=== PATIENT | female | born 1965 | race American Indian/Alaskan Native ===

== ENCOUNTER 2017-03-31 09:02 | Outpatient (CLI) | payer BC ==
--- NOTE | 2017-04-03 10:19 | Mammography Report ---
BILATERAL DIGITAL SCREENING MAMMOGRAM with CAD: 03/31/17 09:02:00 CLINICAL: Routine screening. COMPARISON:None. FINDINGS: Breasts are heterogeneously dense, which may obscure small masses. A right asymmetry on the MLO view requires additional imaging.No architectural distortion or suspicious calcifications.The left breast is negative. IMPRESSION: Right asymmetry requiring further workup. BI-RADS CATEGORY: 0 -- Additional Imaging Evaluation Required RECOMMENDATION: Recall for a right MLO spot compression view and right breast ultrasound is needed. ACR BI-RADS MAMMOGRAPHIC CODES: 0 = Needs additional imaging evaluation; 1 = Negative; 2 = Benign; 3 = Probably benign; 4 = Suspicious; 5 = Malignant; 6 = Known biopsy-proven malignancy COMMENT: 1. Dense breast tissue, i.e., adenosis, fibrocystic changes, etc., may obscure an underlying neoplasm. 2. Approximately 10% of cancers are not detected with mammography. 3. A negative mammography report should not delay biopsy if a clinically suspicious mass is present. COMMENT: Patient follow-up letters are generated via our [employer] application.
== END 2017-03-31 09:03 | disposition home or self-care (01) ==
LOC: SPVWC 09:02 → MAMMO 09:02 → SPVWC 09:03
PROVIDERS: ATTEND General Practice
DX: Z12.31 Encounter for screening mammogram for malignant neoplasm of breast (principal)
CPT/HCPCS: 77067; G0202

== ENCOUNTER 2017-08-25 10:55 | Emergency (ER) | payer BC ==
[2017-08-25 12:24] LABS: Basophils % (Auto) 1.3 % (0.0-1.8); Eosinophils # (Auto) 0.1 K/mm3 (0.0-0.4); Eosinophils % (Auto) 3.9 % (0.0-4.3); Hematocrit 38.1 % (30.3-42.9); Lymphocytes # (Auto) 1.3 K/mm3 (1.2-5.4); Lymphocytes % (Auto) 39.7 % (13.4-35.0); Mean Corpuscular HGB Conc 34 % (30-34); Mean Corpuscular Hemoglobin 33 pg (28-32); Mean Corpuscular Volume 96 fl (79-97); Monocytes # (Auto) 0.4 K/mm3 (0.0-0.8); Monocytes % (Auto) 11.8 % (0.0-7.3); Platelet Count 328 K/mm3 (140-440); Red Blood Count 3.99 M/mm3 (3.65-5.03)
[2017-08-25 12:34] LABS: INR 0.89 (0.87-1.13)
[2017-08-25 12:35] LABS: Partial Thromboplastin Time 27.4 Sec. (24.2-36.6)
[2017-08-25 12:44] LABS: Alanine Aminotransferase 24 units/L (7-56); Albumin 3.8 g/dL (3.9-5); BUN/Creatinine Ratio 5; Blood Urea Nitrogen 5 mg/dL (7-17); Calcium 8.9 mg/dL (8.4-10.2); Hemolysis Index 8
[2017-08-25] MEDS ORDERED: LOVENOX SUB-Q ONE (12:49)
--- NOTE | 2017-08-25 14:25 | Emergency Department Report ---
HPI - General Chief Complaint: Extremity Problem,Nontraumatic Time Seen by Provider: 08/25/17 11:33 - HPI HPI: 51-year-old -[place] female presents with right leg pain, patient had right knee surgery in May. She saw her for orthopedic doctor yesterday in the DVT study was ordered of her right lower extremity. DVT study was positive for DVT in her right leg she was sent to ED for further treatment. She denies any chest pain, shortness of breath, nausea, vomiting. ED Past Medical Hx - Past Medical History Hx Hypertension: Yes Hx CVA: No Hx Heart Attack/AMI: No Additional medical history: Neuropathy, fibromyalgia, bi polar/schizophrenia. - Surgical History Past Surgical History?: Yes Additional Surgical History: Right knee "scope" - Social History Smoking Status: Never Smoker Substance Use Type: None - Medications Home Medications: Home Medications Medication Instructions Recorded Confirmed Last Taken Type Apixaban [Eliquis] 5 mg PO BID #60 tablet 08/25/17 Unknown Rx Apixaban [Eliquis] 10 mg PO BID #14 tablet 08/25/17 Unknown Rx ED Review of Systems ROS: Stated complaint: RT LEG BLOOD CLOT Other details as noted in HPI Comment: All other systems reviewed and negative Constitutional: no symptoms reported Cardiovascular: denies: chest pain, palpitations, dyspnea on exertion, orthopnea Musculoskeletal: other (right leg pain) Skin: denies: rash, lesions Physical Exam - Physical Exam Vital Signs: Vital Signs 08/25/17 11:19 Temperature 98.5 F Pulse Rate 74 Respiratory 16 Rate Blood Pressure 140/83 O2 Sat by Pulse 97 Oximetry Physical Exam: - Physical Exam Physical Exam: - General Limitations: No Limitations General appearance: alert, in no apparent distress, obese - Head Head exam: Present: atraumatic, normocephalic - Eye Eye exam: Present: normal appearance - ENT ENT exam: Present: mucous membranes moist - Neck Neck exam: Present: normal inspection - Respiratory Respiratory exam: Present: normal lung sounds bilaterally. Absent: respiratory distress - Cardiovascular Cardiovascular Exam: Present: normal rhythm, tachycardia. Absent: systolic murmur, diastolic murmur, rubs, gallop - GI/Abdominal GI/Abdominal exam: Present: soft, normal bowel sounds - Extremities Exam Extremities exam: Present: Right lower extremity swelling. Right calf tenderness. - Back Exam Back exam: Present: normal inspection - Neurological Exam Neurological exam: Present: alert, oriented X3 - Psychiatric Psychiatric exam: normal affect and mood - Skin Skin exam: Present: warm, dry, intact, normal color. Absent: rash ED Course Vital Signs 08/25/17 11:19 Temperature 98.5 F Pulse Rate 74 Respiratory 16 Rate Blood Pressure 140/83 O2 Sat by Pulse 97 Oximetry - Reevaluation(s) Reevaluation #1: 08/25/17 20:12 Plan was explained to patient in details. She prefers going home on eliquis. eliquis was given as an rx after 100mg of lovenox im in er. she advised to return to er if symptoms worsens. she voiced understanding. ED Medical Decision Making - Lab Data Result diagrams: 08/25/17 11:58 08/25/17 11:58 Critical care attestation.: If time is entered above; I have spent that time in minutes in the direct care of this critically ill patient, excluding procedure time. ED Disposition Clinical Impression: DVT (deep venous thrombosis) Qualifiers: DVT location: lower extremity Affected thrombotic vein of extremity: tibial Chronicity: acute Laterality: right Qualified Code(s): I82.441 - Acute embolism and thrombosis of right tibial vein Disposition: DC-01 TO HOME OR SELFCARE Is pt being admited?: No Does the pt Need Aspirin: No Condition: Stable Instructions: Deep Venous Thrombosis (ED) Prescriptions: Apixaban [Eliquis] 5 mg PO BID #60 tablet Apixaban [Eliquis] 10 mg PO BID #14 tablet Referrals: PRIMARY CARE, [Primary Care Provider] - 3-5 Days
[2017-08-25 14:36] VITALS: BP 128/78
== END 2017-08-25 14:35 | disposition home or self-care (01) ==
LOC: ED 10:55
DX: I82.441 Acute embolism and thrombosis of right tibial vein (principal); I10 Essential (primary) hypertension; M79.7 Fibromyalgia; F31.9 Bipolar disorder, unspecified
CPT/HCPCS: 36415; 80053; 85025; 85610; 85730; 96372; 99283; J1650

== ENCOUNTER 2017-12-01 17:47 | Emergency (ER) | payer BC ==
[2017-12-01 18:08] VITALS: BP 170/98
[2017-12-01] MEDS ORDERED: ASPIRIN PO ONE (18:08)
[2017-12-01 18:41] LABS: Basophils # (Auto) 0.1 K/mm3 (0.0-0.1); Basophils % (Auto) 1.4 % (0.0-1.8); Eosinophils # (Auto) 0.1 K/mm3 (0.0-0.4); Eosinophils % (Auto) 1.3 % (0.0-4.3); Hematocrit 35.8 % (30.3-42.9); Hemoglobin 11.9 gm/dl (10.1-14.3); Lymphocytes # (Auto) 2.1 K/mm3 (1.2-5.4); Mean Corpuscular HGB Conc 33 % (30-34); Mean Corpuscular Hemoglobin 31 pg (28-32); Mean Corpuscular Volume 95 fl (79-97); Monocytes # (Auto) 0.6 K/mm3 (0.0-0.8); Monocytes % (Auto) 10.2 % (0.0-7.3); Platelet Count 380 K/mm3 (140-440); Red Blood Count 3.79 M/mm3 (3.65-5.03); Red Cell Distribution Width 13.2 % (13.2-15.2)
[2017-12-01 19:09] LABS: BUN/Creatinine Ratio 6; Blood Urea Nitrogen 5 mg/dL (7-17); Calcium 8.7 mg/dL (8.4-10.2); Hemolysis Index 1
== END 2017-12-01 18:09 | disposition left against medical advice (07) ==
LOC: ED 17:47
DX: M79.605 Pain in left leg (principal); Z53.21 Procedure and treatment not carried out due to patient leaving prior to being seen by health care provider
CPT/HCPCS: 36415; 80048; 84484; 85025; 93005; 93010